=== PATIENT | female | born 1945 | race Caucasian/White ===

== ENCOUNTER 2020-05-09 14:29 | Emergency (ER) | payer OTHER ==
[~2020-05-09] VITALS: Ht 160 cm; Wt 119.0 kg
[2020-05-09] MEDS ORDERED: iohexol 350MG/ML 100ml bottle IV ONE (14:40)
[2020-05-09] MEDS ORDERED: morphine 4 MG/ML inj SYRINge IV ONE (17:15)
[2020-05-09 18:15] VITALS: BP 137/57
[2020-05-09] MEDS ORDERED: HYDROcodone/acetaminophen 5mg/325mg tablet PO ONE (20:00)
== END 2020-05-09 20:39 ==
LOC: ER 14:29
DX: R60.0 Localized edema (principal); R06.02 Shortness of breath; R50.9 Fever, unspecified; I48.91 Unspecified atrial fibrillation; I10 Essential (primary) hypertension; Z88.1 Allergy status to other antibiotic agents; Z88.5 Allergy status to narcotic agent
CPT/HCPCS: 71275; 96374; 99285; J2270; Q9967